=== PATIENT | female | born 1985 | race Caucasian/White ===

== ENCOUNTER 2017-08-10 15:32 | Emergency (ER) | payer MEDICAID ==
[~2017-08-10] VITALS: Ht 157.5 cm; Wt 59.1 kg
[2017-08-10] MEDS ORDERED: LORazepam 1 MG tablet PO ONE (15:40)
[2017-08-10 16:08] VITALS: BP 124/65
== END 2017-08-10 16:11 | disposition home or self-care (01) ==
LOC: ER 15:32
DX: R56.9 Unspecified convulsions (principal); J45.909 Unspecified asthma, uncomplicated; Z88.5 Allergy status to narcotic agent; F12.10 Cannabis abuse, uncomplicated; Z87.820 Personal history of traumatic brain injury
CPT/HCPCS: 99284